=== PATIENT | female | born 1980 | race Caucasian/White ===

== ENCOUNTER → 2017-12-28 | Outpatient (CLI) | payer OTHER | LOC: FIMAGING 12:08 | PROVIDERS: ATTEND Advanced Practice Midwife | DX: O09.512 Supervision of elderly primigravida, second trimester (principal); Z3A.20 20 weeks gestation of pregnancy ==

== ENCOUNTER 2018-05-27 06:00 | Inpatient (IN) | payer OTHER ==
[2018-05-27] MEDS ORDERED: IBUPROFEN 600 MG TAB PO PRN (06:15)
[2018-05-27] MEDS ORDERED: OLIVE OIL 118 ML BTL MISC PRN (06:15)
[2018-05-27] MEDS ORDERED: OXYTOCIN/RINGERS LACTATE 1,000 ML IV PRN (06:15)
[2018-05-27] MEDS ORDERED: LIDOCAINE 1% 300 MG/30 ML SDV SC PRN (06:15)
[2018-05-27] MEDS ORDERED: EPSOM SALT 454 GM TP PRN (06:15)
[2018-05-27] MEDS ORDERED: TERBUTALINE SULFATE 1 MG/ML VIAL IV PRN (06:15)
[2018-05-27] MEDS ORDERED: LR 1,000 ML IV PRN (06:15)
[2018-05-27] MEDS ORDERED: MISOPROSTOL 200 MCG TAB PR PRN (06:15)
[2018-05-27] MEDS ORDERED: ACETAMINOPHEN 500 MG TAB ONE (07:13)
[2018-05-27] MEDS ORDERED: LIDOCAINE 1% 300 MG/30 ML SDV ONE (07:19)
[2018-05-27] MEDS ORDERED: OXYTOCIN 10 UNIT/ML VIAL ONE (07:20)
[2018-05-27] MEDS ORDERED: TERBUTALINE SULFATE 1 MG/ML VIAL ONE (07:20)
[2018-05-27] MEDS ORDERED: OLIVE OIL 118 ML BTL ONE (07:20)
[2018-05-27] MEDS ORDERED: AMMONIA AROMATIC 1 EACH AMP IH ONE (07:20)
[2018-05-27] MEDS ORDERED: MISOPROSTOL 200 MCG TAB ONE (07:20)
[2018-05-27 07:49] LABS: PLATELET COUNT 152 10^3/uL (150-400)
[2018-05-27] MEDS ORDERED: fentaNYL 2MCG/ML/BUP 0.1% RTU 100 ML BAG EP ONE (08:38)
[2018-05-27] MEDS ORDERED: BUPIVACAINE 0.25% 30 ML SDV ONE (08:39)
[2018-05-27] MEDS ORDERED: PHENYLEPHRINE HCL 100 MCG/ML SYR ONE (08:39)
[2018-05-27] MEDS ORDERED: fentaNYL 100 MCG/2 ML INJ ONE (08:43)
--- NOTE | 2018-05-27 08:54 | PDGENHP ---
History and Physical History and Physical: CARE: [facility] HPI: Patient is a 37 yo G 2 P 0010 who presents to L&D for IOL @ 41.6 wks ega. Her cervix was 180/-2 yesterday afternoon - cook catheter was placed. She arrived to L/D this am very uncomfortable and nelda every 2-3 minutes. FHT baseline 180s. External bulb of cook was deflated and cervix still 1cm. Bloody show noted. Elena reports + activity, possibly leaking fluid with bloody show. EDC: 05/14/18 which is based on LMP: 08/07/17 which is known and consistent with Ultrasound at 7 weeks. Her is complicated by: -AMA -h/o anxiety/depression - not treated -h/o frequent UTIs -none during -(+) CF carrier - (+) as well. Amnio neg Review of Systems: Constitutional: Denies any fever, chills, or fatigue HEENT: denies any visual changes, difficulty swallowing, hearing loss Cardiovascular: Denies any chest pain, palpitations, leg swelling Respiratory: denies any cough, wheezing, or shortness of breathe GI: Denies any nausea, vomiting, diarrhea, constipation : denies any dysuria, urgency, frequency, vaginal bleeding Musculoskeletal: denies any muscle or bone pain Skin: denies any rashes Neuro: denies any headache, seizures, lightheadedness, dizziness, or loss of consciousness Psychiatric: denies any depression, anxiety, or SI/HI thoughts HISTORY: Previous OB history: Surgical TAB 2009 Past medical history: 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 Has not been an issue since that time. Family history: non-contributory Past surgical history: none Social history: , tax attorney, no tobacco, alcohol, street drug use Medications: PNV Allergies (list reaction): Sulfa - hives LABS: Rh: O pos ABS: Neg Rubella: Immune HbsAg: NR HIV: NR VDRL: NR 1hr: 55 GC: Neg Chlamydia: Neg Pap: Normal GBS: neg PHYSICAL EXAM: Constitutional: WN, A&Ox3 Skin: pink, warm, dry HEENT: normocephalic atraumatic, supple Heart: RRR, no murmur Chest: CTA-B Abdomen: Soft, nontender, gravid SVE: 80/-2 Extremities: trace edema, negative alicia's sign Neuro: grossly normal Psych: normal affect Vital signs: WNL, afebrile assessment: Category 2, baseline 170s, +accels, no decels, moderate variability Contractions: toco q 1-3 mod/firm Assessment: 1) 37 yo G 2 P 0 with IUP@ 41.2 weeks ega 2) IOL -postdates 3) GBS neg 4) Cat 2 FHR tracing 5) Frequent strong uterine contractions since 299 without cervical change - suspect cervical scarring that is preventing dilation Plan: 1) Admit to L&D 2) IV fluid bolus 3) Remove cook catheter and reassess cervical dilation 4) Continuous EFM - monitor closely, check maternal temp q 1 hour 5) Recommend Epidural for pain relief and attempt to break up cervical scar tissue 6) Dr. Gleason notified/reviewed EFM and reviewed POC
[2018-05-27] MEDS ORDERED: ONDANSETRON 4 MG/2 ML VIAL IVP PRN (09:54)
[2018-05-27] MEDS ORDERED: PHENYLEPHRINE HCL 100 MCG/ML SYR IVP PRN (09:54)
--- NOTE | 2018-05-27 09:57 | POSTANESTH ---
Post Anesthetic Evaluation Cardiovascular Status: Normal, Stable, Similar to Pre-Op Cond Respiratory Status: Normal, Stable, Similar to Pre-op Cond. Level of Consciousness/Mental Status: Can Participate in Eval, Alert and Oriented Pain Control: Adequate, Prn Tx Ordered Nausea/Vomiting Control: Adequate, Prn Tx Ordered Complications Possibly Related to Anesthesia: None Noted
[2018-05-27] MEDS ORDERED: fentaNYL 2MCG/ML/BUP 0.1% RTU 100 ML EP SCH (10:00)
[2018-05-27] MEDS ORDERED: LR 500 ML IV SCH (10:00)
--- NOTE | 2018-05-27 10:00 | PREANESOB ---
Obstetric Pre-Anesthesia Info - General Info Proposed Procedure: Labor and delivery. : 2 Para: 0 DARLIN: 05/14/18 Gestational Age: 41 week(s) and 6 day(s) - Info Status: Postmature Monitors: External FHR Baseline (bpm): 160 FHR Pattern: Non-reassuring - Labor Status Cervical Dilation per last OB SVE: 1 Amniotic Fluid Color: Meconium Stained PIH: No Indications for Labor Analgesia: Pain Control Labor Epidural: Proposed Anesthesia ROS: No surgeries. Allergies/Adverse Reactions: Allergy/AdvReac Type Severity Reaction Status Date / Time Sulfa (Sulfonamide Allergy Verified 05/27/18 06:14 Antibiotics) sulfa Allergy Mild Hives Uncoded 05/27/18 06:14 Visit Medications: Generic Name Dose Route Start Last Admin Trade Name Freq PRN Reason Stop Dose Admin Diphenhydramine HCl 25 - 50 mg 05/27/18 09:54 Benadryl Injection IVP 11/23/18 09:53 Q6HRS PRN Itching Lactated Ringer's 1,000 mls @ 0 mls/hr 05/27/18 06:15 Lr IV 05/28/18 06:14 PRN PRN SEE PROTOCOL CONDITIONS Protocol Per Protocol Oxytocin/Lactated Ringer's 1,000 mls @ 125 mls/hr 05/27/18 06:15 Pitocin 20 Units/Lr (Premix) IV PRN PRN Post bleeding Fentanyl/Bupivacaine HCl 100 mls @ 0 mls/hr 05/27/18 10:00 Fentanyl/Bupivacaine/Ns 2 Mcg/Ml 0.1% (Premix EP 06/06/18 09:59 CONT SHANON Protocol As Directed Lactated Ringer's 500 mls @ 0 mls/hr 05/27/18 10:00 Lr IV 11/23/18 09:59 CONT SHANON As Directed Ibuprofen 600 mg 05/27/18 06:15 Motrin PO ONCE PRN post , pain Lidocaine HCl 300 mg 05/27/18 06:15 Lidocaine Hcl 1% SC 11/23/18 06:14 ONCE PRN episiotomy Magnesium Sulfate 454 gm 05/27/18 06:15 Epsom Salt TP 11/23/18 06:14 Q1H PRN perineal discomfort Misoprostol 800 - 1,000 mcg 05/27/18 06:15 Cytotec HI ONCE PRN Vaginal Atony/Bleeding [place] Oil 118 ml 05/27/18 06:15 Sweet Oil MISC 11/23/18 06:14 ONCE PRN perineal massage Ondansetron HCl 4 mg 05/27/18 09:54 Zofran IVP 05/28/18 09:53 Q4HRS PRN Nausea/Vomiting, Can't Take PO Phenylephrine HCl 100 mcg 05/27/18 09:54 Neosynephrine IVP 11/23/18 09:53 .Q2M PRN Hypotension Terbutaline Sulfate 0.25 mg 05/27/18 06:15 Brethine IV 11/23/18 06:14 ONCE PRN Tachysystole Discontinued Medications Generic Name Dose Route Start Last Admin Trade Name Freq PRN Reason Stop Dose Admin Acetaminophen Confirm 05/27/18 07:13 Tylenol Administered 05/27/18 07:14 Dose 1,000 mg .ROUTE .STK-MED ONE Ammonia (Aromatic Spirit) Confirm 05/27/18 07:20 Ammonia Aromatic Administered 05/27/18 07:21 Dose 1 each IH .STK-MED ONE Bupivacaine HCl Confirm 05/27/18 08:39 Sensorcaine 0.25% Sdv Administered 05/27/18 08:40 Dose 30 ml .ROUTE .STK-MED ONE Fentanyl Confirm 05/27/18 08:43 Sublimaze Administered 05/27/18 08:44 Dose 100 mcg .ROUTE .STK-MED ONE Fentanyl/Bupivacaine HCl Confirm 05/27/18 08:38 Fentanyl/Bupivacaine/Ns 2 Mcg/Ml 0.1% (Premix Administered 05/27/18 08:39 Dose 100 ml EP .STK-MED ONE Lidocaine HCl Confirm 05/27/18 07:19 Lidocaine Hcl 1% Administered 05/27/18 07:20 Dose 300 mg .ROUTE .STK-MED ONE Misoprostol Confirm 05/27/18 07:20 Cytotec Administered 05/27/18 07:21 Dose 1,000 mcg .ROUTE .STK-MED ONE [place] Oil Confirm 05/27/18 07:20 Sweet Oil Administered 05/27/18 07:21 Dose 118 ml .ROUTE .STK-MED ONE Oxytocin Confirm 05/27/18 07:20 Pitocin Administered 05/27/18 07:21 Dose 40 unit .ROUTE .STK-MED ONE Phenylephrine HCl Confirm 05/27/18 08:39 Neosynephrine Administered 05/27/18 08:40 Dose 1,000 mcg .ROUTE .STK-MED ONE Terbutaline Sulfate Confirm 05/27/18 07:20 Brethine Administered 05/27/18 07:21 Dose 1 mg .ROUTE .STK-MED ONE - Anesthesia History Response to Local Anesthetics: Normal Anesthesia & Operative History: No Prior Problems Family Anesthesia History: Negative - Social History Substance Use/Abuse: Denies - Vital Signs Blood Pressure: 118/58 Heart Rate: 80 Height/Weight (Nursing): Height 167.64 cm Weight 78.018 kg - Focused Exam Neck exam: FROM Mallampati Score: Class 1 Mouth exam: normal dental/mouth exam Pulmonary: no respiratory distress Cardiovascular: regular rate and rhythym Labs: 05/27/18 06:45 Patient ABO/Rh O POSITIVE 05/27/18 06:45 - Plan Anesthetic Plan: CSE Consent Signed and on Chart: Yes Patient/Guardian Understands and Agrees to Plan: Yes Urgent/Emergent Case: Mulugeta moscoso completed preop but documented later for safe timely pt care
--- NOTE | 2018-05-27 10:26 | OBPROG ---
Labor Progress Note Assessment/Plan: Assessment: 37 y/o at 41.6 wks ega IOL -postdates Comfortable with epidural SVE 5/90/-1 after cervical manipulation to break up scarring Mod amt meconium stained fluid with bloody show noted with exam Category 2 EFM - baseline 150s, mod variability with accels, intermittent late decels since epidural - treating low BP Plan: Continue to monitor EFM status - suspect late decels related to BP since epidural placement Treat BP as indicated Monitor VS, temp hourly Anticipate Dr. Gleason updated on patient status, EFM 05/27/18 10:07 Objective: 05/27/18 06:45 Patient ABO/Rh O POSITIVE 05/27/18 06:45 Temp Pulse Resp BP Pulse Ox 80 118/58 L 05/27/18 10:04 05/27/18 10:04 - SVE Dilation (cm): 5 Effacement (%): 80 Station: -1 Membranes: SROM Amniotic Fluid Color: Meconium Stained, Bloody - Contraction Pattern Assessment Current Contraction Pattern: Regular - Physical Exam General Appearance: WD/WN, alert Cardiac/Chest: regular rate, rhythm Extremities: normal range of motion Skin: normal color, warm/dry Neuro/Psych: alert, normal mood/affect, oriented x 3 Oxytocin Orders Assessment - Pre-Induction/Augmentation Assessment Gestational Age: 41 week(s) and 6 day(s) ICD10 Worksheet Patient Problems: Problems Problem Status Onset AMA (advanced maternal age) primigravida 35+ Acute Post-dates Acute - ICD10 Problem Qualifiers (1) Post-dates (2) AMA (advanced maternal age) primigravida 35+
[2018-05-27] MEDS ORDERED: LIDO/EPI 2% **for epidural** 20 ML SDV ONE (12:44)
[2018-05-27] MEDS ORDERED: DOCUSATE SODIUM 100 MG CAP PO PRN (13:31)
[2018-05-27] MEDS ORDERED: SIMETHICONE 80 MG TAB CHEW PO PRN (13:31)
[2018-05-27] MEDS ORDERED: HYDROCORTISONE 0.5% CREAM TP PRN (13:31)
--- NOTE | 2018-05-27 13:39 | OBDEL ---
Info Type: Vaginal Presentation at Delivery: Vertex (GERI) L&D Analgesia/Anesthesia Type: Epidural GBS+: No - Infant Care Provider Blending Machine Operator/CELL MAKER: Jacquelyn Berumen Indications for Delivery: Elective (IOL secondary to postdates and AMA) Vaginal Delivery - Delivery Provider Delivery Physician/CNM: Sharon Gleason - Labor and Delivery Onset of Contractions Date: 05/27/18 Onset of Contractions Time: 03:00 Onset of Contractions Type: Induced Rupture of Membranes Date: 05/27/18 Rupture of Membranes Time: 10:00 Rupture of Membranes Type: Spontaneous Amniotic Fluid Color: Meconium Stained, Bloody Dilation Complete Date: 05/27/18 Dilation Complete Time: 12:45 Placenta Delivery Date: 05/27/18 Placenta Delivery Time: 13:15 Total Hours of Labor: 10 Non-surgical Procedures: IUPC Laceration: Other (Specify) (Left periurethral that was bleeding) Repair: 3-0, Vicryl Vaginal Sponge Count Correct: Yes Vaginal Needle Count Correct: Yes Vaginal Sweep Performed: Yes EBL: 350 cc Delivery Events: Nuchal Cord (loose x1, delivered through) Delivery Comment: Intermittent late decels since SROM with meconium noted. Prolonged decel after first pushing attempt x 8 min with radha down to 70 bpm. Called into room by RN. Pt with oxygen applied, on left side, fluids wide open. On exam, pt noted to be +2 station, GERI position. Pt then positioned on all fours and then back to left side with return to baseline of 150's. Pt then pushed again and decel noted after ctx with slow return to baseline. Discussed R/B/A of vacuum extraction including hematoma, pop-offs and need for c/s. Pt understand all risks and verbal consent obtained. Flat Kiwi vacuum then applied at +2 station with baby in GERI position and with adequate pressures throughout. Vacuum with 2 pulls and 1 pop-off noted. head then and mom able to push. A viable female was then born at 1300 over intact perineum in GERI position. Loose nuchal x 1 noted and delivered through. Baby to maternal abdomen and bulb suctioned. Cord quickly clamped x 2 and then cut and infant to CELL MAKER. Cord gases and blood was obtained and sent. Placenta then delivered intact with a 3-vc, meconium-stained. Vagina and perineum inspected and perineum intact , but L periurethral lac noted and bleeding. It was repaired with 3-0 Vicryl and hemostasis noted. EBL 350 cc. Pt annette well. No complications. - Medications Labor Augmentation/Induction Methods Used: Jeffries Bulb Labor Augmentation/Induction Indication: Post Dates Assissted Delivery Assisted Delivery Type: Vacuum (Flat Kiwi) Station: +2 Pop offs (Total): 1 Pulls (Total): 2 Data DARLIN: 05/14/18 Gestational Age: 41 week(s) and 6 day(s) [place] Delivery Date: 05/27/18 Delivery Time: 13:00 Sex of Infant: Female Score (1 Min): 3 Score (5 Min): 7 ICD10 Worksheet Patient Problems: Problems Problem Status Onset AMA (advanced maternal age) primigravida 35+ Acute Meconium in amniotic fluid Acute Post-dates Acute Status post vacuum-assisted vaginal delivery Acute - ICD10 Problem Qualifiers (1) Meconium in amniotic fluid (2) Status post vacuum-assisted vaginal delivery
--- NOTE | 2018-05-27 14:12 | OBPROG ---
Labor Progress Note Assessment/Plan: Assessment: 37 y/o at 41.6 wks ega IOL -postdates Comfortable with epidural SVE 5/90/-1 after cervical manipulation to break up scarring Mod amt meconium stained fluid with bloody show noted with exam Category 2 EFM - baseline 150s, mod variability with accels, intermittent late decels since epidural - treating low BP Plan: Continue to monitor EFM status - suspect late decels related to BP since epidural placement Treat BP as indicated Monitor VS, temp hourly Anticipate Dr. Gleason updated on patient status, EFM 05/27/18 10:07 05/27/18 1300 Notified by RN re: EFM -persistent late decelerations regardless of position changes. O2 on at 10L by mask. SVE at 1240: complete/+2 station - prolonged decel to 60s-70s for approximately 5 min - slow return to baseline with position changes. Dr Gleason called to bedside during deceleration to evaluate patient for potential vacuum assisted delivery. See Dr Gleason's consult note/delivery note. Objective: 05/27/18 06:45 Patient ABO/Rh O POSITIVE 05/27/18 06:45 Temp Pulse Resp BP Pulse Ox 80 118/58 L 05/27/18 10:04 05/27/18 10:04 - SVE Dilation (cm): 10 Station: +2 Membranes: SROM Amniotic Fluid Color: Meconium Stained, Bloody Dilation Complete Date: 05/27/18 Dilation Complete Time: 12:45 - Contraction Pattern Assessment Current Contraction Pattern: Regular - Procedures Non-surgical Procedures: IUPC Oxytocin Orders Assessment - Pre-Induction/Augmentation Assessment Gestational Age: 41 week(s) and 6 day(s) ICD10 Worksheet Patient Problems: Problems Problem Status Onset AMA (advanced maternal age) primigravida 35+ Acute Meconium in amniotic fluid Acute Post-dates Acute Status post vacuum-assisted vaginal delivery Acute - ICD10 Problem Qualifiers (1) Post-dates (2) AMA (advanced maternal age) primigravida 35+
[2018-05-27] MEDS: ACETAMINOPHEN 325 MG TAB PO SCH (16:50)
[2018-05-27] MEDS: IBUPROFEN 600 MG TAB PO SCH (20:01)
[2018-05-28] MEDS: ACETAMINOPHEN 325 MG TAB PO SCH ×6 (00:31→23:43)
[2018-05-28] MEDS: IBUPROFEN 600 MG TAB PO SCH ×4 (01:51→20:29)
--- NOTE | 2018-05-28 11:44 | OBPP ---
Progress Note Assessment/Plan: Assessment: Stable PPD 1; establishing Plan: Encouraged to continue medication for pain control and rest. Will discharge home tomorrow. 05/28/18 11:43 Subjective/ Course: 05/28/18 11:42 Elena doing very well today. Pain minimal and well controlled with ibuprofen and tylenol. is going well and baby appears to have a good latch. Happy with experience. Bleeding has decreased quite a bit today. Would like to discharge home tomorrow. 05/28/18 11:43 Objective: 05/27/18 06:45 Patient ABO/Rh O POSITIVE 05/27/18 06:45 Temp Pulse Resp BP Pulse Ox 36.1 C 70 16 99/63 L 94 05/28/18 07:47 05/28/18 07:47 05/28/18 07:47 05/28/18 07:47 05/28/18 07:47 Breasts: Nipples intact bilaterally, soft Uterine Position/Fundal Height: Umbilicus -1 Uterine Tone: Firm
[2018-05-29] MEDS: ACETAMINOPHEN 325 MG TAB PO SCH ×3 (01:51→12:51)
[2018-05-29] MEDS: IBUPROFEN 600 MG TAB PO SCH ×3 (01:52→08:18)
--- NOTE | 2018-05-29 10:49 | OBPP ---
Progress Note Assessment/Plan: Assessment: Stable PPD 1; establishing Stable PPD 2; establishing ; pelvic instablity and pain Plan: Encouraged to continue medication for pain control and rest. Will discharge home tomorrow. 05/28/18 11:43 05/29/18 10:47 !) Discharge home today 2) Continue scheduled ibuprofen and tylenol 3) Reviewed comfort measures for pelvic/hip pain; will reassess in 2 weeks. If still experiencing discomfort and instability refer to PT Subjective/ Course: 05/28/18 11:42 Elena doing very well today. Pain minimal and well controlled with ibuprofen and tylenol. is going well and baby appears to have a good latch. Happy with experience. Bleeding has decreased quite a bit today. Would like to discharge home tomorrow. 05/28/18 11:43 05/29/18 10:45 Having a very difficult time with mobility. States hip flexors are not firing, having to have assistance getting back into bed. Also reports some discomfort on the sympus pubis if legs are moved to quickly. Bleeding has been minimal. Nipples are sore after marathon feedings last night, but no cracks or blisters. Baby is doing well. Will be discharging home today. Objective: 05/27/18 06:45 Patient ABO/Rh O POSITIVE 05/27/18 06:45 Temp Pulse Resp BP Pulse Ox 36.2 C 73 14 92/56 L 94 05/28/18 20:00 05/28/18 20:00 05/28/18 20:00 05/28/18 20:00 05/28/18 20:00 Breasts: Nipples intact bilaterally, breasts soft. Lots of colostrum Uterine Position/Fundal Height: Umbilicus -2 Uterine Tone: Firm
--- NOTE | 2018-05-29 10:51 | OBGCSDC ---
General Delivery Information - General Info : 2 Para: 1 Abortions: 1 Type: Vaginal L&D Analgesia/Anesthesia Type: Epidural Admission Date: 05/27/18 Labs: Patient ABO/Rh O POSITIVE 05/27/18 06:45 Hct 39.7 % (38.0-47.0) 05/27/18 06:45 - Hospital Course : 05/28/18 11:42 Elena doing very well today. Pain minimal and well controlled with ibuprofen and tylenol. is going well and baby appears to have a good latch. Happy with experience. Bleeding has decreased quite a bit today. Would like to discharge home tomorrow. 05/28/18 11:43 05/29/18 10:45 Having a very difficult time with mobility. States hip flexors are not firing, having to have assistance getting back into bed. Also reports some discomfort on the sympus pubis if legs are moved to quickly. Bleeding has been minimal. Nipples are sore after marathon feedings last night, but no cracks or blisters. Baby is doing well. Will be discharging home today. Vaginal - Delivery Provider Delivery Physician/CNM: Sharon Gleason - Diagnosis Labor: Induced Rupture of Membranes Type: Spontaneous Amniotic Fluid Color: Meconium Stained, Bloody Laceration: Other (Specify) (Left periurethral that was bleeding) Repair: 3-0, Vicryl Delivery Events: Nuchal Cord (loose x1, delivered through) - Procedures Assisted Delivery Type: Vacuum (Flat Kiwi) Non-surgical Procedures: IUPC - Delivery Non-surgical Procedures: IU [place] Data DARLIN: 05/14/18 Gestational Age: 42 week(s) and 1 day(s) [place] Delivery Date: 05/27/18 Delivery Time: 13:00 Sex of : Female Weight (gm): 3382 g Score (1 Min): 3 Score (5 Min): 7 Discharge Information - Discharge Information Condition: Good Instruction/Follow Up: Two Weeks, Four Weeks, Six Weeks
[2018-05-29 12:03] VITALS: BP 116/66
== END 2018-05-29 14:15 | disposition home or self-care (01) | DRG 775 ==
LOC: FLD 06:06 → FOB 18:12
PROVIDERS: ADMIT Advanced Practice Midwife; ATTEND Obstetrics & Gynecology
DX: O48.0 Post-term pregnancy (principal); O71.82 Other specified trauma to perineum and vulva; O77.0 Labor and delivery complicated by meconium in amniotic fluid; O76 Abnormality in fetal heart rate and rhythm complicating labor and delivery; O69.81X0 Labor and delivery complicated by cord around neck, without compression, not applicable or unspecified; Z14.1 Cystic fibrosis carrier; Z3A.42 42 weeks gestation of pregnancy; Z37.0 Single live birth
CPT/HCPCS: G0008; J2370; J2590; J3010; J3105

== ENCOUNTER → 2018-06-07 | Outpatient (CLI) | payer OTHER | LOC: FIMAGING 10:57 | PROVIDERS: ATTEND Advanced Practice Midwife | DX: O71.6 Obstetric damage to pelvic joints and ligaments (principal) ==

== ENCOUNTER → 2018-06-30 | Outpatient (CLI) | payer OTHER | LOC: FIMAGING 16:03 | DX: M89.9 Disorder of bone, unspecified (principal); M77.9 Enthesopathy, unspecified; M24.852 Other specific joint derangements of left hip, not elsewhere classified ==